=== PATIENT | male | born 1965 | race Caucasian/White ===

== ENCOUNTER 2017-05-07 07:38 | Emergency (ER) | payer OTHER ==
[~2017-05-07] VITALS: Ht 162.6 cm; Wt 63.0 kg
[2017-05-07 07:42] VITALS: Ht 162.6 cm; Wt 63.0 kg
--- NOTE | 2017-05-07 08:21 | ERD ---
ER Documentation Chief Complaint Date/Time DATE: 05/07/17 TIME: 08:19 Chief Complaint FB IN RIGHT EAR HPI This 51-year-old male presents with foreign body in his right ear. He states that he put moist toilet tissue his right ear when he did not want here his friend who is being well. He denies any bleeding or discharge. ROS All systems reviewed and are negative except as per history of present illness. Allergies Allergies: Coded Allergies: No Known Allergy (Verified Allergy, Unknown, 05/09/08) PMhx/Soc Medical and Surgical Hx: pt denies Medical Hx, pt denies Surgical Hx Hx Alcohol Use: Yes Hx Substance Use: Yes Hx Tobacco Use: Yes Smoking Status: Current every day smoker Physical Exam Vitals Vital Signs Date Time Temp Pulse Resp B/P Pulse Ox O2 Delivery O2 Flow Rate FiO2 05/07/17 07:42 98.1 63 18 133/93 99 Physical Exam Const: [] Alert, [id number]. Head: Atraumatic Eyes: Normal Conjunctiva ENT: Normal External Ears, Nose and Mouth. Likely foreign body visible in the right ear canal. No erythema or bleeding no mastoid tenderness. Neck: Full range of motion..~ No meningismus. Resp: Clear to auscultation bilaterally Cardio: Regular rate and rhythm, no murmurs Abd: Soft, non tender, non distended. Normal bowel sounds Skin: No petechiae or rashes Back: No midline or flank tenderness Ext: No cyanosis, or edema Neur: Awake and alert Psych: Normal Mood and Affect Procedures/MDM Using alligator forceps a water of moist paper was removed from the right ear canal. TM was normal after procedure. Patient tolerated procedure well. There is no evidence of barotrauma or perfect TM or mastoiditis. He will be discharged home with return precautions and primary care follow-up. Departure Diagnosis: Primary Impression: Ear foreign body Encounter type: initial encounter Laterality: right Qualified Code: T16.1XXA - Foreign body of right ear, initial encounter Condition: Stable Patient Instructions: Foreign Body, Ear Canal (Removed) Additional Instructions: Recheck for new or worsening symptoms or primary care doctor. MAHNAZ WALKER MD May 07, 2017 08:21
== END 2017-05-07 08:22 | disposition home or self-care (01) ==
LOC: FTE 07:38
DX: T16.1XXA Foreign body in right ear, initial encounter (principal); F17.210 Nicotine dependence, cigarettes, uncomplicated; X58.XXXA Exposure to other specified factors, initial encounter; Y92.9 Unspecified place or not applicable

== ENCOUNTER 2018-02-23 10:56 | Emergency (ER) | END 2018-02-23 14:45 | disposition home or self-care (01) ==

== ENCOUNTER 2018-10-29 11:22 | Emergency (ER) | payer OTHER ==
[~2018-10-29] VITALS: Wt 78.9 kg
[~2018-10-29 11:22] MED LIST: CEPH-443 PO; IBUP-1542 PO; SULF1TAB31 PO
[2018-10-29 11:26] VITALS: BP 129/77; PULSE 80; RESP 18
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
== END 2018-10-29 13:40 | disposition home or self-care (01) ==
LOC: FTE 11:22
DX: Z48.02 Encounter for removal of sutures (principal); F17.210 Nicotine dependence, cigarettes, uncomplicated
CPT/HCPCS: 99281

== ENCOUNTER 2019-02-13 19:45 | Emergency (ER) | payer OTHER ==
[~2019-02-13] VITALS: Ht 167.6 cm; Wt 61.0 kg
[2019-02-13 19:50] VITALS: BP 127/82; PULSE 97; RESP 20; Ht 167.6 cm; Wt 61.0 kg
--- NOTE | 2019-02-13 21:09 | ERD ---
ER Documentation Chief Complaint Chief Complaint Pt reports cotton in R ear HPI 53-year-old male with no significant past history presents for paper retained in the right ear x1 day. States that he was trying to make some earplugs and wet some paper and stuck it in both of his ears. He was able to move the one from his left ear but the one on his right ear is stuck. He denies decreased hearing. There is no actual pain noted. Denies any fevers or chills. No other modifying factors noted, no treatments tried at home. ROS All systems reviewed and are negative except as per history of present illness. Medications Home Meds Active Scripts Ibuprofen* (Motrin*) 600 Mg Tab, 600 MG PO Q6, #15 TAB Prov:MAHNAZ WALKER MD 02/23/18 Cephalexin* (Keflex*) 500 Mg Capsule, 500 MG PO QID for 10 Days, CAP Prov:MAHNAZ WALKER MD 02/23/18 Sulfamethoxazole/Trimethoprim* (Bactrim Ds* Tablet) 1 Each Tablet, 1 TAB PO BID for 10 Days, #14 TAB Prov:MAHNAZ WALKER MD 02/23/18 Allergies Allergies: Coded Allergies: No Known Allergy (Verified Allergy, Unknown, 05/09/08) PMhx/Soc Medical and Surgical Hx: pt denies Medical Hx, pt denies Surgical Hx Hx Alcohol Use: Yes Hx Substance Use: Yes Hx Tobacco Use: Yes Smoking Status: Never smoker FmHx Family History: No coronary disease Physical Exam Vitals Vital Signs Date Temp Pulse Resp B/P (MAP) Pulse Ox O2 O2 Flow FiO2 Time Delivery Rate 02/13/19 98.2 97 20 127/82 95 19:50 (97) Physical Exam Const: No acute distress Head: Atraumatic Eyes: Normal Conjunctiva ENT: Right ear canal with foreign body noted looks like paper, nose and throat examination normal Neck: Full range of motion. No meningismus. Resp: Clear to auscultation bilaterally Cardio: Regular rate and rhythm, no murmurs Ext: No cyanosis, or edema Neur: Awake and alert Psych: Normal Mood and Affect Procedures/MDM Medical Decision Making: Patient presents with retained paper in the right ear canal. Examination consistent with a retained foreign body, appears to be paper. Patient appeared well on physical exam. Forceps were used to remove the paper, patient symptoms improved after the procedure. Patient tolerated the procedure well. Patient advised not to stick paper in his ears any longer. Patient advised that if he needs earplugs to use actually earplugs that can be bought at the store. Patient advised to follow up with PCP in 1-2 days. Patient advised to return to ED for new or worsening symptoms. Patient stable on discharge from the ED. Disclaimer: Inadvertent spelling and grammatical errors are likely due to EHR/dictation software use and do not reflect on the overall quality of patient care. Also, please note that the electronic time recorded on this note does not necessarily reflect the actual time of the patient encounter. Departure Diagnosis: Primary Impression: Retained foreign body Condition: Fair Patient Instructions: Foreign Body, Ear Canal (Removed) Additional Instructions: Call your primary care doctor TOMORROW for an appointment during the next 1-2 days.See the doctor sooner or return here if your condition worsens before your appointment time. ALEKSEY LOUISE DO Feb 13, 2019 21:09
== END 2019-02-13 21:30 | disposition home or self-care (01) ==
LOC: FTE 19:45
DX: T16.1XXA Foreign body in right ear, initial encounter (principal); X58.XXXA Exposure to other specified factors, initial encounter; Y92.9 Unspecified place or not applicable; Z87.891 Personal history of nicotine dependence